=== PATIENT | male | born 1990 ===

== ENCOUNTER 2016-09-08 00:03 | Emergency (ER) | payer SELFPAY ==
[2016-09-08] MEDS ORDERED: LORAZEPAM 1 MG TABLET ONE (01:04)
== END 2016-09-08 01:27 | disposition left against medical advice (07) ==
LOC: ED 00:03 → EDBD 00:03 → ED 01:27
DX: R07.9 Chest pain, unspecified (principal); Z88.0 Allergy status to penicillin
CPT/HCPCS: 99283 ×2; A9270